=== PATIENT | female | born 1955 | race Caucasian/White ===

== ENCOUNTER 2017-08-01 05:07 | Inpatient (IN) | payer OTHER ==
[~2017-08-01] VITALS: Ht 167.6 cm; Wt 57.3 kg
--- NOTE | 2017-08-01 05:16 | NUR ---
PT TO RM 15 VIA W/C.
[2017-08-01 06:00] LABS: HEMATOCRIT 39.9 % (37.0-47.0); HEMOGLOBIN 13.5 g/dl (12.0-16.0); IMMATURE GRANULOCYTES 0.5 % (0.0-1.0); MEAN CELL VOLUME 92.1 fL CALC (80.0-100.0); MEAN CORPUSCULAR HGB 31.2 pG CALC (26.0-32.0); MEAN CORPUSCULAR HGB CONC 33.8 g/L CALC (32.0-36.0); NEUT# 12.49 thou/uL (2.00-7.15); RED BLOOD COUNT 4.33 mill/uL (4.20-5.60); RED CELL DISTRI WIDTH 12.7 % (11.5-15.5)
[2017-08-01 06:08] LABS: ALBUMIN 4.8 g/dL (3.2-5.0); ALKALINE PHOSPHATASE 93 u/l (38-126); ANION GAP 18 (6-22 (CALC)); BILIRUBIN, TOTAL 0.8 mg/dL (0.0-1.4); BUN 25 mg/dL (8-23); BUN/CREATININE RATIO 25 (12-20 (CALC)); CALCIUM 9.8 mg/dL (8.4-10.2); CARBON DIOXIDE 22 mmol/l (22-30); CHLORIDE 105 mmol/l (95-108); GFR 56 ML/MIN (>=60 (CALC)); GFR FOR AFR.AMER. > 60 ML/MIN (>=60 (CALC)); GLUCOSE 151 mg/dL (82-115); POTASSIUM 4.3 mmol/l (3.5-5.1); SGOT/AST 25 u/l (9-36); SGPT/ALT 35 u/l (11-66); SODIUM 141 mmol/l (137-146); TOTAL PROTEIN 7.6 g/dL (6.3-8.2)
--- NOTE | 2017-08-01 06:15 | NUR ---
MEDICATED FOR PAIN AND NAUSEA.
--- NOTE | 2017-08-01 06:46 | NUR ---
WARM WET TOWEL COMPRESS AT PT'S REQUEST FOR L FLANK PAIN
--- NOTE | 2017-08-01 06:55 | NUR ---
BEDSIDE REPORT FROM POORNIMA VARGAS.
--- NOTE | 2017-08-01 07:00 | NUR ---
PATIENT RESTING ON STRETCHER WITH HOT PACK TO LEFT FLANK. REPORTS PAIN LEVEL IS 3/10 ON PAIN SCALE. PATIENT INFORMED TO CALL FOR ASSISTANCE, CALL LIGHT WITHIN REACH.
[2017-08-01 07:44] LABS: URINE BILIRUBIN - DIPSTICK NEGATIVE (NEGATIVE); URINE BLOOD DIPSTICK MODERATE (NEGATIVE); URINE COLOR YELLOW; URINE GLUCOSE - DIPSTICK NEGATIVE (NEGATIVE); URINE KETONE 15 mg/dL (NEGATIVE); URINE LEUK ESTERASE TRACE (NEGATIVE); URINE NITRITE - DIPSTICK NEGATIVE (Negative); URINE PROTEIN - DIPSTICK 30 mg/dL (NEG-TRACE); URINE SPECIFIC GRAVITY 1.025; URINE UROBILINOGEN - DIPSTICK 0.2 E.U./dL (0.2)
[2017-08-01 07:46] LABS: URINE CLARITY HAZY
[2017-08-01 07:47] LABS: URINE BACTERIA FEW hpf; URINE EPITHELIAL CELLS MANY EPI/hpf (0-FEW); URINE MUCUS MODERATE hpf (NONE-FEW); URINE WBC 0-2 WBC/hpf (0-5)
--- NOTE | 2017-08-01 08:08 | NUR ---
MD AT BEDSIDE TO DISCUSS RESULTS.
--- NOTE | 2017-08-01 08:27 | NUR ---
SBAR PRINTED TO FLOOR
--- NOTE | 2017-08-01 08:50 | NUR ---
PATIENT RESTING ON STRETCHERM NO SIGNS OF DISTRESS NOTED. BLOOD CULTURES DRAWN BY LAB. ABX AND FLUIDS STARTED. INFUSING WELL. WILL CONTINUE TO MONITOR.
--- NOTE | 2017-08-01 08:54 | NUR ---
ATTEMPT TO CALL REPORT, NO ANSWER.
[2017-08-01] MEDS ORDERED: FOSAMAX PLUS PO (09:14)
[2017-08-01] MEDS ORDERED: VITAMIN D32000 UNIT PO (09:15)
[2017-08-01] MEDS ORDERED: OS-CAL 500500 M1 PO (09:15)
--- NOTE | 2017-08-01 09:20 | NUR ---
REPORT GIVEN TO POORNIMA TARIQ
--- NOTE | 2017-08-01 09:25 | NUR ---
PATIENT TRANSPORTED TO MED SURG VIA STRETCHER BY POWERED BRIDGE SPECIALIST. BEDSIDE REPORT GIVEN TO POORNIMA TARIQ.
--- NOTE | 2017-08-01 09:25 | NUR ---
FROM ER VIA WHEELCHAIR ACCOMPANIED BY CARMELINA NOGUERA. AMBULATED TO BED WITH STEADY GAIT. RESPS EVEN AND UNLABORED ON ROOM AIR. #20 LAC INFUSING WITHOUT DIFFUCULTY, SITE APPEARS HEALTHY. REPORTS LEFT FLANK PAIN 2/10, WHICH IS AN IMPROVEMENT. REQUESTS MEDICATION FOR NAUSEA. WILL MEDICATE PER NOV. ORIENTED TO ROOM AND CALL SYSTEM. SAFETY PRECAUTIONS REINFORCED. BED IN LOWEST POSITION WITH WHEELS LOCKED. CALL LIGHT WITHIN REACH. ENCOURAGED PT TO CALL FOR ANY NEEDS.
[2017-08-01 09:35] VITALS: BP 128/57
--- NOTE | 2017-08-01 10:25 | NUR ---
RESTING IN SEMI FOWLERS. RESPS EVEN AND UNLABORED ON ROOM AIR. #20 LAC INFUSING WITHOUT DIFFICULTY, SITE APPEARS HEALTHY. MEDICATED WITH ZOFRAN 4MG IVP FOR C/O NAUSEA. DR CORNELIUS IN WITH PT, NEW ORDERS RECEIVED.
[2017-08-01 15:19] VITALS: BP 105/63
--- NOTE | 2017-08-01 16:15 | NUR ---
RESTING IN HIGH FOWLERS READING A BOOK. FAMILY AT BEDSIDE. RESPS EVEN AND UNLABORED ON ROOM AIR. DENIES PAIN OR DISCOMFORT. #20 LAC INFUSING WITHOUT DIFFICULTY, SITE APPEARS HEALTHY. CALL LIGHT WITHIN REACH. ENCOURAGED PT TO CALL FOR ANY NEEDS.
[2017-08-01 19:25] VITALS: BP 95/56
--- NOTE | 2017-08-01 20:00 | NUR ---
PT IN BED A/O X3, RESPIRATIONS EVEN AND UNLABORED. C/O LOWER BACK PAIN 09/18. NS INFUSING TO LAC AT 100CC/HR. PT AWARE TO BE NPO AFTER MIDNIGHT. ENCOURAGED TO USE CALL LIGHT FOR ASSISTANCE. WILL CONTINUE TO MONITOR.
[2017-08-02] VITALS (8 sets, daily range): BP systolic 105–153; BP diastolic 42–78
--- NOTE | 2017-08-02 | NUR ---
OOB TO BATHROOM VOIDING CLEAR YELLOW URINE, DENIES PAIN. PO FLUIDS REMOVED FROM BED SIDE, IS NPO PT AWARE.
--- NOTE | 2017-08-02 04:21 | NUR ---
PT SITTING UP IN BED READING, DENIES PAIN. IV FLUIDS INFUSING TO LAC WITH NO COMPLICATIONS, CALL LIGHT IN REACH.
--- NOTE | 2017-08-02 05:20 | NUR ---
MORNING BLOOD WORK DRAWN BY LUG BREAKER AND WIRE PULLER, TOLERATED WELL. VOICES NO CONCERNS.
[2017-08-02 05:57] LABS: HEMATOCRIT 32.9 % (37.0-47.0); HEMOGLOBIN 10.9 g/dl (12.0-16.0); MEAN CELL VOLUME 93.7 fL CALC (80.0-100.0); MEAN CORPUSCULAR HGB 31.1 pG CALC (26.0-32.0); MEAN CORPUSCULAR HGB CONC 33.1 g/L CALC (32.0-36.0); RED BLOOD COUNT 3.51 mill/uL (4.20-5.60)
[2017-08-02 06:00] LABS: ANION GAP 10 (6-22 (CALC)); BUN 14 mg/dL (8-23); BUN/CREATININE RATIO 21 (12-20 (CALC)); CALCIUM 8.5 mg/dL (8.4-10.2); CARBON DIOXIDE 26 mmol/l (22-30); CHLORIDE 113 mmol/l (95-108); CREATININE 0.7 mg/dL (0.5-1.0); GFR > 60 ML/MIN (>=60 (CALC)); GFR FOR AFR.AMER. > 60 ML/MIN (>=60 (CALC)); GLUCOSE 94 mg/dL (82-115); POTASSIUM 4.1 mmol/l (3.5-5.1); SODIUM 144 mmol/l (137-146)
--- NOTE | 2017-08-02 07:00 | NUR ---
REPORT RECIEVED FROM LIZETH HARMAN. PT AWAKE ON ENTRY. PT HAS NO COMPLAINTS OF PAIN. RESP EVEN AND UNLABORED. IV PATENT. WILL CONTINUE TO MONITOR. SAFETY PRECAUTIONS REINFORCED. CALL LIGHT WITHIN REACH.
--- NOTE | 2017-08-02 09:05 | NUR ---
PT OFF FLOOR TO OR WITH POORNIMA LIAO.
--- NOTE | 2017-08-02 11:10 | NUR ---
PT ARRIVED TO ROOM VIA STRETCHER WITH POORNIMA LIAO. PT AMBULATED TO BED AND ORIENTED TO ROOM AND CALL LIGHT SYSTEM. IV PATENT. PT HAS NO COMPLAINTS OF PAIN. CALL LIGHT WITHIN REACH. PT INSTRUCTED TO CALL FOR ASSISTANCE. WILL CONTINUE TO MONITOR. FIRST SET OF VITALS TAKEN; T-97.8, O2-97 ROOM AIR, HR-87, BP-146/54.
--- NOTE | 2017-08-02 11:20 | NUR ---
PT VOIDED, 600CC BLOODY YELLOW URINE. URINE STRAINED; NOTHING WAS FOUND.
--- NOTE | 2017-08-02 12:23 | NUR ---
Talked to pt. about her new medications ceftriaxone and ondansetron. Informed her about adverse effects of these medications. Pt. said not experiencing any severe pain symptoms because of her kidney stone. Pt. said that she was given a prescription of Flomax. Pt. does not have any questions about her medications at this time.
--- NOTE | 2017-08-02 15:15 | NUR ---
Discharge instructions given. Patient verbalizes understanding of same. Discharged in stable condition via Ambulatory to Home with family. All belongings sent with pt.
== END 2017-08-02 15:15 | disposition home or self-care (01) | DRG 691 ==
LOC: ED 05:07 → ED-I 08:25 → ED 08:36 → MS2 08:37
PROVIDERS: Emergency Medicine; ADMIT Internal Medicine; ATTEND Internal Medicine
PROC: 0TF7XZZ Fragmentation in Left Ureter, External Approach (ICD-10-PCS; principal; 2017-08-02)
DX: N13.2 Hydronephrosis with renal and ureteral calculous obstruction (principal); M81.0 Age-related osteoporosis without current pathological fracture; Z85.3 Personal history of malignant neoplasm of breast; Z87.442 Personal history of urinary calculi
CPT/HCPCS: Q9967

== ENCOUNTER → 2018-10-29 | Outpatient (REF) | payer OTHER ==
[~2018-10-29] MED LIST: FOSAMAX PLUS PO; OS-CAL 500500 M1 PO; VITAMIN D32000 UNIT PO
[2018-10-29 01:52] LABS: IMMATURE GRANULOCYTES 0.2 % (0.0-5.0); MEAN CELL VOLUME 94.2 fL CALC (80.0-100.0); MEAN CORPUSCULAR HGB 30.7 pG CALC (26.0-32.0); MEAN CORPUSCULAR HGB CONC 32.6 g/L CALC (32.0-36.0); NEUT# 4.84 thou/uL (2.00-7.15); RED BLOOD COUNT 4.49 mill/uL (4.20-5.60); RED CELL DISTRI WIDTH 13.2 % (11.5-15.5)
[2018-10-29 01:53] LABS: HEMATOCRIT 42.3 % (37.0-47.0); HEMOGLOBIN 13.8 g/dl (12.0-16.0)
[2018-10-29 02:34] LABS: ALBUMIN 4.7 g/dL (3.2-5.0); ALKALINE PHOSPHATASE 80 u/l (38-126); ANION GAP 15 (6-22 (CALC)); BILIRUBIN, TOTAL 1.3 mg/dL (0.0-1.4); BUN 17 mg/dL (8-23); BUN/CREATININE RATIO 22 (12-20 (CALC)); CALCULATED LDLCHOLESTEROL 125 mg/dL (62-129 (CALC)); CARBON DIOXIDE 28 mmol/l (22-30); CHOLESTEROL HDL RATIO 2.7 (<4.4 (CALC)); CREATININE 0.8 mg/dL (0.5-1.0); GFR > 60 ML/MIN (>=60 (CALC)); GFR FOR AFR.AMER. > 60 ML/MIN (>=60 (CALC)); HDL CHOLESTEROL 83 mg/dL (>=40); POTASSIUM 4.8 mmol/l (3.5-5.1); SGOT/AST 41 u/l (9-36); SODIUM 137 mmol/l (137-146); TOTAL CHOLESTEROL 222 mg/dl (0-199); TOTAL PROTEIN 7.2 g/dL (6.3-8.2); TOTAL TRIGLYCERIDES 70 mg/dl (30-149); VLDL CHOLESTROL 14 mg/dl (1-41 (CALC))
[2018-10-29 02:38] LABS: CHLORIDE 99 mmol/l (95-108)
== END | disposition home or self-care (01) | DRG 951 ==
LOC: LAB 01:37
PROVIDERS: ATTEND Family Medicine
DX: Z00.00 Encounter for general adult medical examination without abnormal findings (principal)

== ENCOUNTER → 2018-11-11 | Outpatient (REF) ==
[2018-11-11 19:47] LABS: CHOLESTEROL HDL RATIO 2.6 (<4.4 (CALC))
== END | disposition home or self-care (01) | DRG 951 ==
LOC: LAB 19:01
PROVIDERS: ATTEND Family Medicine
DX: Z02.6 Encounter for examination for insurance purposes (principal)

== ENCOUNTER 2019-02-24 07:28 | Day surgery (SDC) | payer OTHER ==
[~2019-02-24] VITALS: Ht 167.6 cm; Wt 56.2 kg
[~2019-02-24 07:28] MED LIST changes: +BIOTIN5000 MC2; +COQ-10100 M1 PO; +OMEGA 7 PO; +ZINC50 M1 PO
[2019-02-24 09:06] VITALS: BP 117/56
== END 2019-02-24 09:20 | disposition home or self-care (01) | DRG 951 ==
LOC: ENDO 07:28
PROVIDERS: ATTEND Surgery
PROC: 0DJD8ZZ Inspection of Lower Intestinal Tract, Via Natural or Artificial Opening Endoscopic (ICD-10-PCS; principal; 2019-02-24)
DX: Z12.11 Encounter for screening for malignant neoplasm of colon (principal)